=== PATIENT | male | born 1975 | race African-American/Black ===

== ENCOUNTER 2017-10-02 06:54 | Day surgery (SDC) | payer OTHER, SELFPAY ==
[2017-10-01 07:45] VITALS: BMI 24.6
[2017-10-02] VITALS (8 sets, daily range): BP systolic 126–143; BP diastolic 88–99; PULSE 60–94; RESP 14–16; TEMP 36.1–36.6; O2SAT 95–99; BMI 24.6
[2017-10-02] MEDS: CEFAZOLIN 2 GM/100 ML FROZ.PIGGY IV (07:54)
--- NOTE | 2017-10-02 08:34 | SUR.OPER ---
Supine on padded OR bed, head on pillow, non-operable arm secured on padded arm boards at <90 degrees abduction, operable arm secured by assisting personnel, legs uncrossed, safety belt at thigh, tape over blanket over lower legs.
[2017-10-02] MEDS: BUPIVACAINE 0.25% W/ EPI 50 ML VIAL INJ (09:36)
[2017-10-02] MEDS: fentaNYL 100 MCG/2 ML INJ 50 MCG IV ×4 (09:37→09:56)
[2017-10-02] MEDS: HYDROCODONE/ACET 5/325 TABLET 1 TAB PO (09:57)
--- NOTE | 2017-10-02 10:14 | SUR.PHASEII ---
PT ARRIVED TO PHASE II VIA STRETCHER. PT SITTING UP, ALERT AND TALKING TO RN. PT BROUGHT TO BEDSIDE. IV SITE CLEAR AND INFUSING WITHOUT DIFFICULTLY. SURGICAL EXTREMITY WARM TO TOUCH, PT ABLE TO MOVE FINGERS, +SENSTATION AND +PULSE. DRESSING TO SURGICAL SITE C/D/I. PT TOLERATING ORAL INTAKE WITHOUT ANY DIFFICULTLY. PT DENIES ANY NAUSEA. PT STATES PAIN IS TOLERABLE AT THIS TIME. PT AND PT SPOUSE WAITING TO SPEAK WITH DR. MERRILL. BED IN LOWEST POSITION AND CALL LIGHT GIVEN TO PT. PT APPEARS COMFORTABLE AT THIS TIME.
--- NOTE | 2017-10-02 16:35 | P.OP_ITS ---
Operative Date/Time/Diagnoses - Date of procedure: 10/02/17 Time of procedure: 08:27 Pre-op diagnosis: ULNAR STLYOID FX AND TFCC TEAR Post-op diagnosis: same Procedure & Clinicians Procedure: OPEN REDUCTION INTERNAL FIXATION OF AN ULNAR STYLOID NONUNION TFCC REPAIR Same procedure as scheduled: Yes Indications: DISTAL RADIUS FRACTURE WITH AN ULNAR STYLOID FRACTURE. PATIENT HAD PREVIOUS SURGERY TO FIX THE DISTAL RADIUS BUT NOTHING WAS DONE WITH THE ULNAR STYLOID. OVER TIME, PATIENT DEVELOPED ULNAR-SIDED WRIST PAIN WELL SOME INSTABILITY TO THE DRUJ Surgeon: Issac Verde Regional Marketing Manager: Codie Heck Anesthesia Type: General Operative Notes Findings: NONUNION OF THE ULNAR STYLOID INVOLVING THE FOVEA. SIGNS OF TEARING TO THE ULNAR INSERTION OF THE TFCC. Closure Type: primary Specimen(s): none sent Implants & Drains: TRIMED ULNAR PIN PLATE WITH 1 K-WIRE Applied: implant(s) Estimated Blood Loss (mL): 5 Blood products transfused: none Tourniquet time (min): 43 Procedure in detail: ON DATE OF SERVICE, PATIENT WAS MET IN THE HOLDING AREA WHERE HIS OPERATIVE SITE WAS SIGNED AND WITNESSED BY THE OR STAFF. SURGERIES ONCE AGAIN DISCUSSED WITH THE PATIENT REMAINING QUESTIONS OR CONCERNS HE HAD WERE ANSWERED TO HIS FULL SATISFACTION. PATIENT RECEIVED HIS ANTIBIOTICS. PATIENT WAS TAKEN BACK TO THE OPERATING THEATER PLACED ON THE OPERATING TABLE IN A SUPINE POSITION. GREAT CARE WAS TAKEN TO ENSURE THAT ALL BONY PROMINENCES WERE APPROPRIATELY PADDED. WELL-PADDED TOURNIQUET WAS PLACED ALONG THE UPPER EXTREMITY AND A TIME-OUT WAS PERFORMED VERIFYING PATIENT'S NAME PROCEDURE AND OPERATIVE SITE. THE RIGHT ARM WAS THEN PREPPED AND DRAPED IN THE NORMAL STERILE FASHION. ESMARCH WAS USED TO EXSANGUINATE THE LIMB THE TOURNIQUET WAS TURNED UP TO 250 MM OF MERCURY. AN INCISION WAS MADE TO THE DORSAL ULNAR ASPECT OF THE ULNA. FIFTEEN BLADE WAS USED INCISE THE SKIN AND FASCIAL TISSUE. SHARP DISSECTION WAS CONTINUED DOWN ALONG THE LATERAL BORDER OF THE ULNA EXPOSING THE ULNAR STYLOID. THE 6TH EXTENSOR COMPARTMENT WAS NOT DISTURBED. USING A RONGEUR AND A CURETTE THE NONUNION SITE WAS DEBRIDED UNTIL WE WERE DOWN TO GOOD HEALTHY BONE. THE ULNAR STYLOID WAS THEN REDUCED ONTO THE ULNA AND HELD PROVISIONALLY WITH A K -WIRE. C-ARM WAS BROUGHT IN TO VERIFY OUR OVERALL REDUCTION. ONCE WE WERE SATISFIED WITH THE REDUCTION, THE PIN PLATE WAS PLACED AND WAS USED TO FIXATE THE ULNAR STYLOID BACK TO THE ULNA. NEXT, THROUGH BONY TUNNEL SUTURE WAS PLACED TO REINFORCE THE ULNAR ATTACHMENT OF THE TFCC TO THE ULNAR FOVEA. FINAL X-RAYS WERE OBTAINED. THE WOUND WAS COPIOUSLY IRRIGATED AND THEN CLOSED IN A LAYERED FASHION. PATIENT WAS PLACED INTO A LONG-ARM SPLINT. PATIENT WAS EXTUBATED AND TAKEN TO THE PACU IN STABLE CONDITION. Complications: none Condition: stable Disposition: same day surgery Plan for aftercare: PATIENT WILL BE IMMOBILIZED IN A LONG-ARM SPLINT/CAST FOR A TOTAL OF 4 WEEKS. THIS WILL THEN BE CONVERTED TO A SHORT-ARM CAST FOR ANOTHER 2 WEEKS.
== END 2017-10-02 10:41 | disposition home or self-care (01) ==
PROVIDERS: Visit Provider Orthopaedic Surgery
PROC: (CPT 25652; principal; 2017-10-02 07:45)
DX: S52.611G Displaced fracture of right ulna styloid process, subsequent encounter for closed fracture with delayed healing (principal); S62.101A Fracture of unspecified carpal bone, right wrist, initial encounter for closed fracture; G47.33 Obstructive sleep apnea (adult) (pediatric); F17.210 Nicotine dependence, cigarettes, uncomplicated
CPT/HCPCS: 25652; 25107; J0690; J1100; J2405; J2704; J3010

== ENCOUNTER 2019-05-20 05:53 | Day surgery (SDC) | payer OTHER, SELFPAY ==
[2019-05-10 14:55] VITALS: BMI 24.1
[2019-05-20] VITALS (9 sets, daily range): BP systolic 101–143; BP diastolic 59–95; PULSE 67–89; RESP 10–16; TEMP 36.1–37.1; O2SAT 91–100; BMI 24.1
[2019-05-20] MEDS: LACTATED RINGERS 1,000 ML 42 ML IV (07:05)
--- NOTE | 2019-05-20 07:41 | PM.PREOP ---
Pre-operative Note Interval Note History & Physical reviewed/Exam performed by Physician: Yes Changes to H&P: No
--- NOTE | 2019-05-20 07:44 | PM.HP.1 ---
History of Present Illness History of Present Illness Date Patient Seen: 05/20/19 Time Patient Seen: 07:28 Chief complaint: [id number] Narrative: Patient is status post surgery for distal radius fracture now with a symptomatic implants Patient History Medical History Depression (Acute) Distal radius fracture, right (Acute 10/02/17) History of ETOH abuse (Acute) Loss of consciousness for less than 30 minutes (Acute) Ribs, multiple fractures (Acute) Sleep apnea (Acute) Ulnar fracture (Acute) Family & Social History Social History: household members spouse Tobacco & Substance use: Tobacco type cigarettes Smoking Status Current every day smoker alcohol intake former Substance Use Type does not use Meds Home Medications and Allergies Home Medications Medication Instructions Recorded Confirmed Type sertraline 100 mg PO DAILY 10/02/17 05/20/19 History trazodone 100 mg PO DAILY 10/02/17 05/20/19 History hydrocodone-acetaminophen [[place]] 2 tab PO Q4-6H PRN #30 tab 05/20/19 Rx Allergies Allergy/AdvReac Type Severity Reaction Status Date / Time No Known Drug Allergies Allergy Verified 05/20/19 06:42 Review of Systems Review of Systems ROS Unobtainable: All systems reviewed & are unremarkable except as noted in HPI and below Exam Vital Signs (past 8 hours): - 05/20/19 07:04 Temperature 98.7 F Pulse Rate 67 Respiratory Rate 16 Blood Pressure 121/86 Pulse Oximetry 97 Oxygen Delivery Method Room Air Narrative Exam Narrative: Tender to palpation over the ulnar implant. Relatively normal range of motion of the radiocarpal joint. Ulnar, median, and radial nerve intact to both motor and sensory function. Assessment & Plan Assessment & Plan narrative: Patient with some discomfort after surgical fixation of a distal radius fracture. Patient is scheduled for removal of ulnar implant. Time Spent With Patient Time with patient: less than 15 minutes
[2019-05-20] MEDS: CEFAZOLIN 2 GM/100 ML FROZ.PIGGY IV (07:52)
--- NOTE | 2019-05-20 08:13 | SUR.OPER ---
Supine on padded OR bed, head on pillow,left arm secured on padded arm board at <90 degrees abduction, right arm on arm table secured to OR table, legs uncrossed, safety belt at thigh.
[2019-05-20] MEDS: BUPIVACAINE 0.5% W/ EPI (PF) 30 ML VIAL INJ (08:22)
--- NOTE | 2019-05-20 08:45 | PM.OP.1 ---
Operative Date/Time/Diagnoses Date of procedure: 05/20/19 Time of procedure: 08:00 Pre-op diagnosis: Right wrist fracture status post fixation with symptomatic implant Post-op diagnosis: same Procedure & Clinicians Procedure: Removal of ulnar implant Same procedure as scheduled: Yes Indications: Symptomatic implant Surgeon: Issac Verde Click Yes if Unassisted: Yes Anesthesia Type: General Operative Notes Findings: Healed ulnar styloid fracture. No sign of any implant loosening or failure Closure Type: primary Specimen(s): none sent Estimated Blood Loss (mL): 0 Blood products transfused: none Tourniquet time (min): 30 Procedure in detail: On date of service, patient was met in the holding area where his operative site was signed and witnessed by the OR staff. The surgeries once again discussed with the patient in remaining questions or concerns he had were answered fully. Patient was taken back to the operating theater placed on the operating table in a supine position. Great care was taken to ensure that all bony prominences were appropriately padded. Time-out was performed verifying patient's name, procedure, and operative site. The right arm was prepped and draped in the normal sterile fashion. Esmarch was used to exsanguinate the limb the tourniquet was turned up to 250 mm of mercury. The previous incision was used. Fifteen blade was used to incise through skin and fascial tissue. Sharp dissection was continued until we had good visualization of the ulnar implant. The K-wire and 3 screws were removed as well as the plate. No implant failure or breakage noted in all implant came out in 1 whole piece. The wound was then copiously irrigated and closed in a layered fashion. Patient's hand and arm were dressed in a soft dressing. Patient was extubated and taken to the PACU in stable condition. Complications: none Post-operative Condition: stable Disposition: PACU Plan for aftercare: No restrictions of range of motion. Will limit the amount of lifting for the next 2 weeks.
[2019-05-20] MEDS: fentaNYL 100 MCG/2 ML INJ IV (09:03)
[2019-05-20] MEDS: HYDROCODONE/ACET 5/325 TABLET 1 TAB PO (09:43)
== END 2019-05-20 10:16 | disposition home or self-care (01) ==
PROVIDERS: Visit Provider Orthopaedic Surgery
PROC: (CPT 20680; principal; 2019-05-20 07:45)
DX: T84.84XA Pain due to internal orthopedic prosthetic devices, implants and grafts, initial encounter (principal); F32.9 Major depressive disorder, single episode, unspecified; G47.30 Sleep apnea, unspecified; F17.210 Nicotine dependence, cigarettes, uncomplicated
CPT/HCPCS: 20680; J0690; J1100; J1885; J2250; J2405; J2704; J3010

== ENCOUNTER 2021-11-24 09:25 | Emergency (ER) | payer OTHER, SELFPAY ==
[2021-11-24] VITALS (8 sets, daily range): BP systolic 110–148; BP diastolic 69–83; PULSE 54–64; RESP 18; TEMP 36.5; O2SAT 99–100; BMI 21.6
[2021-11-24] MEDS: PANTOPRAZOLE 40 MG VIAL IV (09:43)
--- NOTE | 2021-11-24 09:45 | ED_ITS ---
HPI - Abdominal Pain General Chief Complaint: Abdominal Pain Stated Complaint: Stomach pain, mild chest pain Time Seen by Provider: 11/24/21 09:31 Source: patient Mode of arrival: Ambulatory History of Present Illness HPI narrative: 46-year-old gentleman with abdominal pain today. He also notes about a 5 lb weight loss in the past month as well. He has been treated and evaluated for this a number of times over the past year. He did have an emesis that was clear a few days ago but not today. Pain he describes as midepigastric and then he also identifies many other places in his abdomen including the suprapubic area in the extreme right and left sides of his abdomen. He also endorses some midthoracic pain that he associates with seeding at his computer. No acute injury. No fever. No constipation. He does have some loose stools. No bloody stools. No fever. He says the pain was quite a bit better well on a certain stomach medication that he cannot name but then it was changed to famotidine recently and the pain has been worse again while on famotidine. He says he had laboratory data collected yesterday at an urgent care clinic in [place]. He is concerned about the ongoing pain in the setting of abnormal weight loss. Related Data Home Medications Medication Instructions Recorded Confirmed sertraline 100 mg PO DAILY 10/02/17 05/20/19 trazodone 100 mg PO DAILY 10/02/17 05/20/19 Previous Rx's Medication Instructions Recorded hydrocodone 5 mg-acetaminophen 325 2 tab PO Q4-6H PRN pain #30 tabs 05/20/19 mg tablet ([place]) pantoprazole 40 mg tablet,delayed 40 mg PO DAILY #30 tabs 11/24/21 release (Protonix) Allergies Allergy/AdvReac Type Severity Reaction Status Date / Time No Known Drug Allergies Allergy Verified 05/20/19 06:42 Review of Systems Review of Systems Narrative: Complete review of systems is negative other than as noted above Patient History Medical History (Updated 11/24/21 @ 11:17 by Tayo Smith MD) Depression Distal radius fracture, right (10/02/17) History of ETOH abuse Loss of consciousness for less than 30 minutes Ribs, multiple fractures Sleep apnea Ulnar fracture Social History household members: spouse Smoking Status: Current every day smoker alcohol intake: former Smoking Status: Current every day smoker Substance Use Type: does not use Exam Narrative Exam Narrative: GENERAL: Alert, cooperative and in no distress. HEAD: Atraumatic. Normocephalic. EYES: Sclera are clear without icterus. Extraocular movements are full. ENT: No rhinorrhea. Oropharynx is moist. Mouth exam is benign. NECK: Supple. Full range of motion. CARDIOVASCULAR: Normal rate and rhythm without murmur gallop or rub. RESPIRATORY: Clear to auscultation. Breath sounds equal bilaterally. No wheezes, rales, or rhonchi. GASTROINTESTINAL: Abdomen soft, no distention, mild midepigastric pain without guarding or mass. Corona sign is not present. No McBurney's point tenderness. No suprapubic tenderness. EXTREMITIES: No edema, full range of motion. No obvious trauma. BACK: Normal inspection, no CVA tenderness. NEURO: Nonfocal examination, normal speech, normal gait. SKIN: No rash or erythema of visible areas PSYCH: Normally oriented. Normal range of affect. Appropriate behavior Initial Vital Signs Initial Vital Signs: Vital Signs Pulse Rate 59 L 11/24/21 09:30 Blood Pressure 148/71 H 11/24/21 09:30 Pulse Oximetry 99 11/24/21 09:30 Course Orders Ordered: ED Orders 11/24/21 09:40 Lipase Stat 11/24/21 11:32 EKG-12 Lead Stat 11/24/21 11:39 Troponin I Stat Discontinued Medications Pantoprazole Sodium (Pantoprazole 40 Mg Vial) 40 mg IV NOW ONE Stop: 11/24/21 09:40 Last Admin: 11/24/21 09:43 Dose: 40 mg Documented By: ERICA Vital Signs Vital signs: Vital Signs - 8 hr 11/24/21 09:33 11/24/21 09:30 11/24/21 09:30 Temperature 97.7 F Pulse Rate 59 L 59 L Respiratory Rate 18 Blood Pressure 148/71 H 148/71 H Pulse Oximetry 99 99 Oxygen Delivery Method Room Air 11/24/21 10:00 11/24/21 10:00 11/24/21 10:27 Temperature Pulse Rate 59 L 64 Respiratory Rate Blood Pressure 122/75 Pulse Oximetry 100 99 Oxygen Delivery Method 11/24/21 10:27 11/24/21 10:30 11/24/21 10:31 Temperature Pulse Rate 58 L 55 L Respiratory Rate Blood Pressure 119/71 Pulse Oximetry 100 100 Oxygen Delivery Method 11/24/21 10:31 11/24/21 11:00 11/24/21 11:00 Temperature Pulse Rate 54 L Respiratory Rate Blood Pressure 110/69 116/76 Pulse Oximetry 100 Oxygen Delivery Method 11/24/21 11:46 Temperature Pulse Rate 54 L Respiratory Rate 18 Blood Pressure 121/83 Pulse Oximetry 100 Oxygen Delivery Method Room Air MDM - Abdominal Pain Medical Records Medical records narrative: This patient appears well. His EKG shows some nonspecific changes. I do not believe he has an acute cardiac cause for his symptoms. Troponin is also reassuring. I asked him to follow-up with EKG abnormalities with his primary care provider. I think his GI symptoms are related to acid and I recommend a proton pump inhibitor. He has a follow-up already scheduled next week. Lab Data Lab results narrative: Laboratory data from yesterday November 23 at 12:47 p.m. reveals: Sodium 139 Potassium 4.2 Chloride 104 CO2 28 Creatinine 1.0 Glucose 96 Calcium 9.7 Bilirubin 0.7 AST 31 ALT 40 Alkaline phosphatase 61 Total protein 7.5 Albumin 4.7 Triglycerides 52 White blood cell count 4.2 Hemoglobin 15.5 Hematocrit 45.6 Platelets 154 TSH 1.49 Labs: Lab Results 11/24/21 11/24/21 Range/Units 09:40 11:39 Troponin I < 0.012 (0.01-0.034) ng/mL Lipase 53 (23-300) U/L [facility] Narrative Medical decision making narrative: He looks entirely well, vital signs are reassuring. Laboratory data is normal within the past 24 hours. I think symptomatic therapy is appropriate with close outpatient follow-up as is previously arranged. Careful return precautions given. He has benign abdominal examination as well. When asked him why he came to the emergency department he says that he was worried about the pain radiating up into his chest a little bit. I do not suspect any acute coronary cause for his symptoms. Discharge Plan Departure Patient Disposition: Home Clinical Impression: Abdominal pain Activity Restrictions/Additional Instructions: No immediately dangerous condition is discovered today. Laboratory data from yesterday is entirely reassuring. I did 1 additional test checking for pancreatic inflammation that is also completely normal and reassuring. We gave her some Protonix which has helped her symptoms a little bit. I think that your symptoms are most likely related to stomach acid I recommend stopping famotidine for now and going back on the proton pump inhibitor. The 1 I will prescribe is called Protonix or pantoprazole. Take this once daily. Plan on following up with your doctor as planned next week. Return to the emergency department right away for worsening symptoms such as vomiting blood, repeated vomiting, high fever, worsening abdominal pain to the point where you can't do normal activities. Prescriptions: New pantoprazole [Protonix] 40 mg tablet,delayed release (DR/EC) 40 mg PO DAILY Qty: 30 0RF No Action sertraline 100 mg PO DAILY trazodone 100 mg PO DAILY hydrocodone-acetaminophen [[place]] 5-325 mg tablet 2 tab PO Q4-6H PRN (Reason: pain) Qty: 30 0RF Referrals: ProviderSwapnil [Primary Care Provider] - Visit Report Forms: Patient Portal/API
[2021-11-24 10:10] LABS: Lipase 53 U/L (23-300)
[2021-11-24 12:10] LABS: Troponin I < 0.012 ng/mL (0.01-0.034)
== END 2021-11-24 11:46 | disposition home or self-care (01) ==
PROVIDERS: Emergency Provider Family Medicine Addiction Medicine
DX: R10.9 Unspecified abdominal pain (principal); R07.9 Chest pain, unspecified
CPT/HCPCS: 36415; 83690; 84484; 93005; 93010; 96374; 99284; C9113

== ENCOUNTER 2024-05-31 08:18 | Day surgery (SDC) | payer OTHER, SELFPAY ==
[2024-05-31 08:56] VITALS: BP 107/73; PULSE 59; RESP 16; TEMP 36.4; O2SAT 99
[2024-05-31] MEDS: SODIUM CHLORIDE 0.9% 1,000 ML 84 ML IV (08:58)
--- NOTE | 2024-05-31 09:00 | PM.OP.COLON ---
Operative Date/Time/Diagnoses Date of procedure: 05/31/24 Pre-op diagnosis: See indication and findings Procedure & Clinicians Study performed: Colonoscopy Indications: History of adenomatous colon polyps Surgeon: Neetu Choudhury Procedure Notes Procedure in detail: After informed consent was obtained the patient was placed in left lateral decubitus position. The video colonoscope was introduced the rectum slowly advanced cecum. Preparation was good. On slow withdrawal mucosa was carefully examined. The scope was removed. The patient tolerated procedure well. Blood loss none Complications none Sedation mac Findings 1. Normal colonoscopy to cecum Due to young age with finding of adenomatous colon polyps should have follow-up colonoscopy in 5 years.
--- NOTE | 2024-05-31 09:02 | P.HP_ITS ---
History of Present Illness History of Present Illness Chief complaint: Colonoscopy Narrative: Personal history of adenomatous colon polyps [facility] Medical History (Updated 12/09/21 @ 00:00 by ) Depression History of ETOH abuse Loss of consciousness for less than 30 minutes Sleep apnea Ulnar fracture Ribs, multiple fractures Distal radius fracture, right (10/02/17) Social History household members: spouse Smoking Status: Former smoker alcohol intake: former Meds Home Medications and Allergies Home Medications Medication Instructions Recorded Confirmed Type pantoprazole 40 mg tablet,delayed 40 mg PO DAILY #30 tabs 11/24/21 05/31/24 Rx release (Protonix) Allergies Allergy/AdvReac Type Severity Reaction Status Date / Time No Known Drug Allergies Allergy Verified 05/31/24 08:46 Exam Vital Signs (past 8 hours): - 05/31/24 08:56 Temperature 97.6 F Pulse Rate 59 L Respiratory Rate 16 Blood Pressure 107/73 Pulse Oximetry 99 Oxygen Delivery Method Room Air Oxygen Delivery Method Room Air Narrative Exam Narrative: oropharynx free of lesions Chest clear to auscultation percussion Cardiac exam reveals no S3 or murmur Assessment & Plan Assessment & Plan narrative: History of adenomatous colon polyps need for follow-up colonoscopy. Risks, benefits, alternatives have been explained. Time-Based Coding :: [TOTAL MINUTES] spent with patient and on the chart (including review of chart, obtaining history, exam, reviewing outside data, placing orders, documenting exam and treatment plan, and counseling patient) on [DATE].
[2024-05-31 09:53] VITALS: BP 91/62; PULSE 66; RESP 14; TEMP 36.4; O2SAT 98
[2024-05-31 09:58] VITALS: BP 93/57; PULSE 66; RESP 14; O2SAT 97
[2024-05-31 10:03] VITALS: BP 104/72; PULSE 65; RESP 14; O2SAT 98
[2024-05-31 10:04] VITALS: BP 105/77; PULSE 63; RESP 14; O2SAT 100
== END 2024-05-31 10:19 | disposition home or self-care (01) ==
PROVIDERS: Referring Provider Internal Medicine Gastroenterology; Visit Provider Internal Medicine Gastroenterology
PROC: 0DJD8ZZ Inspection of Lower Intestinal Tract, Via Natural or Artificial Opening Endoscopic (ICD-10-PCS; CPT 45378; principal; 2024-05-31 09:30)
DX: Z12.11 Encounter for screening for malignant neoplasm of colon (principal); Z86.0101 Personal history of adenomatous and serrated colon polyps; G47.33 Obstructive sleep apnea (adult) (pediatric); K21.9 Gastro-esophageal reflux disease without esophagitis; Z87.891 Personal history of nicotine dependence
CPT/HCPCS: G0105; J2704

== ENCOUNTER 2025-02-28 00:28 | Emergency (ER) | payer OTHER, SELFPAY ==
[2025-02-28 00:36] VITALS: BP 130/84; PULSE 55; RESP 16; TEMP 36.5; O2SAT 99; BMI 20.9
--- NOTE | 2025-02-28 00:41 | ED.EAR ---
HPI - Ear Problem General Chief complaint: Ear Stated complaint: Bilateral Earing Reaction Time Seen by Provider: 02/28/25 00:37 Source: patient Mode of arrival: Ambulatory History of Present Illness HPI Narrative: 49-year-old male who 3 days ago had new earrings placed in bilateral earlobes. He started experiencing pain in bilateral earlobes and so he moved the earrings and yesterday went to an urgent care who has advised the patient to put some hydrocortisone cream over the bilateral earlobes but the area has not improved. He is having some drainage around the openings. No fever no chills no other symptoms. Related Data Previous Rx's ?Medication ?Instructions ?Recorded pantoprazole 40 mg tablet,delayed 40 mg PO DAILY #30 tabs 11/24/21 release (Protonix) cephalexin 500 mg capsule 500 mg PO BID #14 caps 02/28/25 Allergies Allergy/AdvReac Type Severity Reaction Status Date / Time No Known Drug Allergies Allergy Verified 02/28/25 00:36 Review of Systems Review of Systems ROS Unobtainable: All systems reviewed & are unremarkable except as noted in HPI and below Patient History Medical History (Updated 02/28/25 @ 00:43 by Luis Alfredo Sibley MD) Depression History of ETOH abuse Loss of consciousness for less than 30 minutes Sleep apnea Ulnar fracture Ribs, multiple fractures Distal radius fracture, right (10/02/17) Social History household members: spouse Smoking Status: Never smoker alcohol intake: former Smoking Status: Never smoker Exam Narrative Exam Narrative: General: Patient appears to be in no acute distress, acting appropriately Head: normocephalic, atraumatic, HEENT: Pupils equal round reactive, eyes tracking well, neck supple, no JVD bilateral ear lobes showed some inflammation/redness/warmth and crusted ooze Heart: regular rate and rhythm, no murmurs, rubs, or gallops heard Lungs: clear to auscultation, no adventitious sounds Abdomen: soft , nontender, nondistended, positive bowel sounds Neurological: no focal neurological signs, moving all extremities well, alert and oriented x3, Psych: good judgment ,good insight, mood is normal. Initial Vital Signs Initial Vital Signs: Vital Signs Temperature 97.7 F 02/28/25 00:36 Pulse Rate 55 L 02/28/25 00:36 Respiratory Rate 16 02/28/25 00:36 Blood Pressure 130/84 02/28/25 00:36 Pulse Oximetry 99 02/28/25 00:36 Oxygen Delivery Method Room Air 02/28/25 00:36 Course Orders Ordered: Discontinued Medications Cefazolin Sodium (Cephalexin 250 Mg Cap Prepack) 1 bottle MISC DIRECTED ONE Stop: 02/28/25 00:43 Last Admin: 02/28/25 00:45 Dose: 500 mg Vital Signs Vital signs: Vital Signs - 8 hr 02/28/25 00:36 Temperature 97.7 F Pulse Rate 55 L Respiratory Rate 16 Blood Pressure 130/84 Pulse Oximetry 99 Oxygen Delivery Method Room Air Medical Decision Making MDM Narrative Medical decision making narrative: 49-year-old male with obvious cellulitic infection over bilateral earlobes. Advised to keep the areas off and given a prepack of cephalexin here in the ED. patient will complete a one-week course and follow up in 2 days if not improved. Discharge Plan Departure Patient Disposition: Home Clinical Impression: Cellulitis of earlobe Qualifiers: Laterality: bilateral Qualified Code(s): H60.13 - Cellulitis of external ear, bilateral Instructions: DI for Cellulitis -- Adult Activity Restrictions/Additional Instructions: Take antibiotics as prescribed. Follow up in 2 days if not improved. Prescriptions: New cephalexin 500 mg capsule 500 mg PO BID Qty: 14 0RF No Action pantoprazole [Protonix] 40 mg tablet,delayed release (DR/EC) 40 mg PO DAILY Qty: 30 0RF Referrals: ProviderSwapnil [Primary Care Provider, Family Practice] Stand Alone Forms: Patient Portal/API
== END 2025-02-28 00:51 | disposition home or self-care (01) ==
PROVIDERS: Emergency Provider Family Medicine
DX: H60.13 Cellulitis of external ear, bilateral (principal)
CPT/HCPCS: 99281